=== PATIENT | male | born 1990 | race Two or more races ===

== ENCOUNTER 2024-03-05 12:42 | Emergency (ER) | payer SELFPAY ==
[2024-03-05] MEDS: Diphtheria,Pertussis(Acell),Tetanus Vaccine 0.5 ML Syringe IM ONE (13:19)
== END 2024-03-05 14:40 | disposition home or self-care (01) ==
LOC: MW.ED 12:42
DX: S62.354A Nondisplaced fracture of shaft of fourth metacarpal bone, right hand, initial encounter for closed fracture (principal); S01.512A Laceration without foreign body of oral cavity, initial encounter; Z75.8 Other problems related to medical facilities and other health care; Z23 Encounter for immunization; V89.2XXA Person injured in unspecified motor-vehicle accident, traffic, initial encounter
CPT/HCPCS: 29125; 70450; 70450-26; 73130-26-RT; 73130-RT; 90471; 90715; 99284-25